=== PATIENT | female | born 1990 | race Caucasian/White ===

== ENCOUNTER → 2025-02-04 | Emergency (ER) | payer OTHER ==
[~2025-02-04] VITALS: Ht 154.9 cm; Wt 75.3 kg
[~2025-02-04] MED LIST: ELVITEG/COB/EMTRI/TENOFO DISOP 1 UDTAB TABLET PO ONE; ELVITEG/COB/EMTRI/TENOFO DISOP 1 UDTAB TABLET PO STA; PRO-FAST SR37.5 MG
== END | disposition home or self-care (01) ==
LOC: ER 07:54
DX: S61.242A Puncture wound with foreign body of right middle finger without damage to nail, initial encounter (principal); Y64.8 Contaminated medical or biological substance administered by other means; Y82.8 Other medical devices associated with adverse incidents; Y92.238 Other place in hospital as the place of occurrence of the external cause